=== PATIENT | female | born 1955 | race Caucasian/White ===

== ENCOUNTER 2017-09-22 05:00 | Day surgery (SDC) | payer MEDICAID ==
[~2017-09-22] VITALS: Ht 160 cm; Wt 71.7 kg
[2017-09-22] MEDS ORDERED: LACTATED RINGERS 1,000 ML IV SCH (06:40)
[2017-09-22] MEDS ORDERED: MORPHINE SULFATE/PF 1MG/ML 10ML AMP ONE (07:10)
[2017-09-22] MEDS ORDERED: BACITRACIN 50,000 UNITS/VIAL ONE ×2 (07:11→07:12)
[2017-09-22] MEDS ORDERED: BUPIVACAINE HCL/EPINEPHRINE/PF 0.5%/0.0005 10ML ONE (07:11)
[2017-09-22] MEDS ORDERED: NORMAL SALINE 0.9% 10 ML SYR ONE (07:11)
[2017-09-22] MEDS ORDERED: PROPOFOL 200MG/20ML VIAL IV ONE (07:37)
[2017-09-22] MEDS ORDERED: FENTANYL CITRATE/PF 50MCG/ML 2ML VIAL ONE (07:37)
[2017-09-22] MEDS ORDERED: SUCCINYLCHOLINE CHLORIDE 200MG/10ML VIAL IV ONE (07:38)
[2017-09-22] MEDS ORDERED: MIDAZOLAM HCL 2 MG/2 ML VIAL ONE (07:48)
[2017-09-22] MEDS ORDERED: CEFAZOLIN SODIUM 1000MG/VIAL ONE (07:57)
[2017-09-22] MEDS ORDERED: ONDANSETRON HCL 4MG/2ML VIAL IV PRN (08:30)
[2017-09-22] MEDS ORDERED: SKIN ADHESIVE 0.7 GM EA TOP ONE (09:26)
[2017-09-22] MEDS ORDERED: HYDROMORPHONE HCL/PF 2MG/ML CPJ IV PRN (10:00)
[2017-09-22] MEDS ORDERED: HYDROCODONE/ACETAMINOPHEN 10/325MG TABLET PO PRN (10:00)
[2017-09-22 10:11] VITALS: BP 147/108
== END 2017-09-22 14:00 | disposition home or self-care (01) ==
LOC: OR 05:00 → UNDOADMIN 05:52 → ORIP 05:52 → EDSTATUS 11:30 → OR 14:00
PROVIDERS: ATTEND Orthopaedic Surgery
DX: G56.22 Lesion of ulnar nerve, left upper limb (principal); J93.83 Other pneumothorax; Z98.890 Other specified postprocedural states; Z87.01 Personal history of pneumonia (recurrent); Z87.891 Personal history of nicotine dependence; Z79.899 Other long term (current) drug therapy
CPT/HCPCS: 64718; 93005; A4216; G0168; J0171; J0690; J1170; J2250; J2405; J3010; J3490; J0330; J2274; J2704